=== PATIENT | female | born 1970 | race Caucasian/White ===

== ENCOUNTER 2016-10-25 16:28 | Emergency (ER) | payer OTHER ==
--- NOTE | 2016-10-31 08:15 | ER ---
ADMIT: 10/25/2016 RM/LOC: ER [facility] MR#: [id number] [id number] [address] [place] [address] Emergency Room Report SEX: F AGE: 46 : 1970 DATE: 10/25/2016 HISTORY OF PRESENT ILLNESS: A 46-year-old female, comes to the Emergency Department with 24 hours of headache, she says it is similar to her prior migraines. She normally takes lidocaine nasal spray per Dr. Frazier, who has referred her on to a headache specialist in [place]. She has had migraines since the age of 21, this is similar to her other migraine. See T-sheet for history and physical. DIAGNOSIS: Headache. She was instructed to follow up with her doctor this week. Rolando Antunez MD/ marbella JOB #: [id number] CC: Rolando Antunez MD, Attending Physician
== END 2016-10-25 19:18 | disposition home or self-care (01) ==
LOC: ER 16:28
DX: R51 Headache (principal); J45.909 Unspecified asthma, uncomplicated; F17.210 Nicotine dependence, cigarettes, uncomplicated; Z79.899 Other long term (current) drug therapy

== ENCOUNTER 2017-01-15 17:23 | Emergency (ER) | payer OTHER ==
--- NOTE | 2017-01-20 07:15 | ER ---
ADMIT: 01/15/2017 RM/LOC: ER [facility] MR#: [id number] [facility] [address] [place] [id number] [address] [place] [address] Emergency Room Report SEX: F AGE: 46 : 1970 DATE: 01/15/2017 She has had a migraine headache for 12 hours. She has tried a compound of lidocaine that was prescribed by an [place] provider and she said, used twice and it has not done much for her. She is allergic to triptans. REVIEW OF SYSTEMS: Otherwise negative. Her was accompanying her in the room, but he had to leave and she states that she is very sensitive to light, visual and sound disturbances, nausea, dizzy. Symptoms have been similar in the past. PAST MEDICAL HISTORY: Fibromyalgia, chronic fatigue syndrome, insomnia, depression, and anxiety. SOCIAL HISTORY: She smokes 5 cigarettes a day and occasionally drinks alcohol. PAST SURGICAL HISTORY: She has had also nasal surgery. PHYSICAL EXAMINATION: VITAL SIGNS: Blood pressure 131/81, heart rate is 88, respirations 16, temp is 97.1, and O2 sats 96%. GENERAL: Wearing sun glasses. Does not seem to be in much distress. NECK: Supple. RESPIRATIONS: No distress. CVS: Regular in rate and rhythm. EXTREMITIES: Well perfused. Oriented x4. Mood and affect appropriate. Motor and sensory normal. LABORATORY DATA: No labs are done at this time. CLINICAL IMPRESSION: Migraine headache, acute. Given a cocktail of Ativan 1 mg, Phenergan 25 mg, Benadryl. She stated that the last time she had a cocktail, did not take her pain away completely and I mentioned that, that is not my aim today, it is to decrease the discomfort and allow the medication to work even after she gets home. She needs to follow up with primary provider, hydration, and rest. LON Kwon / Miah Gomez MD / marbella JOB #: [id number] CC: Miah Gomez MD, Attending Physician Miguel Morales MD, Family Physician
== END 2017-01-15 19:30 | disposition home or self-care (01) ==
LOC: ER 17:23
DX: G43.909 Migraine, unspecified, not intractable, without status migrainosus (principal); F32.9 Major depressive disorder, single episode, unspecified; F41.9 Anxiety disorder, unspecified; F17.210 Nicotine dependence, cigarettes, uncomplicated; Z98.890 Other specified postprocedural states; Z88.8 Allergy status to other drugs, medicaments and biological substances; Z79.84 Long term (current) use of oral hypoglycemic drugs; Z79.899 Other long term (current) drug therapy